=== PATIENT | female | born 1980 | race Caucasian/White ===

== ENCOUNTER → 2017-08-10 08:20 | Outpatient (CLI) | payer BC, SELFPAY ==
[2017-08-10 10:50] LABS: Hematocrit 36.1 % (37-47); Hemoglobin 11.6 g/dl (12.0-15.0); Mean Corp Hgb Conc 32.1 g/gl (32-36); Mean Corpuscular Hgb 30.8 pg (27.0-32.0); Mean Corpuscular Volume 95.8 fL (81-99); Mean Platelet Vol. 9.5 fl (6.2-12.0); Platelet Count 230 K/mm3 (150-450); RBC Distribution Width CV 14.9 % (11.6-14.6); RBC Distribution Width SD 51.5 fl (35.1-43.9); Red Blood Count 3.77 M/mm3 (4.2-5.4); White Blood Count 8.1 K/mm3 (4.4-11.0)
[2017-08-10 10:55] LABS: Glucose Challenge Gest 1H 50g 84 mg/dL (70-140)
[2017-08-10 11:09] LABS: Scan Indicated on CBC? Y/N NO
== END ==
PROVIDERS: Visit Provider Obstetrics & Gynecology
DX: Z34.83 Encounter for supervision of other normal pregnancy, third trimester (principal)
CPT/HCPCS: 82950; 85027

== ENCOUNTER → 2017-10-04 13:14 | Outpatient (CLI) | payer BC, SELFPAY ==
[2017-10-04 14:29] LABS: Group B Strep DNA By PCR POSITIVE (Negative); Probe Check PASS
== END ==
PROVIDERS: Visit Provider Obstetrics & Gynecology
DX: Z36.85 Encounter for antenatal screening for Streptococcus B (principal)
CPT/HCPCS: 87653

== ENCOUNTER 2017-10-27 04:59 | Inpatient (IN) | payer BC, SELFPAY ==
[2017-10-27] MEDS: Lactated Ringers 1,000 ML 50 ML IV ×2 (06:00→08:40)
[2017-10-27 06:36] LABS: Hematocrit 37.8 % (37-47); Hemoglobin 12.5 g/dl (12.0-15.0); Mean Corp Hgb Conc 33.1 g/gl (32-36); Mean Corpuscular Hgb 30.9 pg (27.0-32.0); Mean Corpuscular Volume 93.6 fL (81-99); Mean Platelet Vol. 10.2 fl (6.2-12.0); Platelet Count 245 K/mm3 (150-450); RBC Distribution Width CV 14.6 % (11.6-14.6); RBC Distribution Width SD 48.2 fl (35.1-43.9); Red Blood Count 4.04 M/mm3 (4.2-5.4); White Blood Count 8.7 K/mm3 (4.4-11.0)
[2017-10-27 06:39] LABS: Scan Indicated on CBC? Y/N NO
[2017-10-27 06:44] VITALS: BMI 47.4
[2017-10-27] MEDS: fentaNYL-bupivacaine (epidural) 100 ML BAG EPIDURAL (08:15)
[2017-10-27] MEDS: Oxytocin 30 units/NS 500 ml 30 UNITS/500 ML IV.SOLN 334 UNITS IV (10:48)
--- NOTE | 2017-10-27 10:54 | PCM.DCVAG ---
Discharge Diet: No Restrictions Discharge Activity: May Shower, May Take a Tub Bath May resume sexual activity in: 4-6 weeks Additional Activity Instructions:: Nothing in the vagina for 4-6 weeks. You may return to work/school in 6 weeks. Additional Instructions: If you experience any of the following, contact your healthcare provider. Bleeding that soaks a pad every hour for 2 hours Fever 100.4 or higher Unrelieved abdominal pain Problems urinating (including inability to urinate or burning while urinating). Visual changes Severe headache Flu-like symptoms Pain or redness in one of both of your breasts Pain, warmth, tenderness or swelling in your legs, especially the calf area Frequent nausea and vomiting Symptoms of depression or anxiety If you experience any of the following, call 911 or go to the nearest Emergency Room. Chest pain Problems breathing Seizure activity Partial or complete paralysis of a body part, slurred speech, weakness or drooping of the face, or a sudden inability to walk or hold your balance Allergies/Adverse Reactions: Allergies No Known Allergies Allergy (Verified 10/27/17 06:43) Medications to take at Discharge Vits [Prenatabs FA] 1 tablet PO DAILY 02/18/15 Please Follow Up With: Malu De León MD - [phone] When: Call to make an appointment with your doctor in 6 weeks. Primary Care Physician: Di Song MD [Primary Care Provider] - Proposed Discharge Date: 10/29/17
--- NOTE | 2017-10-27 10:55 | DCINST_ITS ---
Discharge Diet: No Restrictions Discharge Activity: May Shower, May Take a Tub Bath May resume sexual activity in: 4-6 weeks Additional Activity Instructions:: Nothing in the vagina for 4-6 weeks. You may return to work/school in 6 weeks. Additional Instructions: If you experience any of the following, contact your healthcare provider. * Bleeding that soaks a pad every hour for 2 hours * Fever 100.4 or higher * Unrelieved abdominal pain * Problems urinating (including inability to urinate or burning while urinating) . * Visual changes * Severe headache * Flu-like symptoms * Pain or redness in one of both of your breasts * Pain, warmth, tenderness or swelling in your legs, especially the calf area * Frequent nausea and vomiting * Symptoms of depression or anxiety If you experience any of the following, call 911 or go to the nearest Emergency Room. * Chest pain * Problems breathing * Seizure activity * Partial or complete paralysis of a body part, slurred speech, weakness or drooping of the face, or a sudden inability to walk or hold your balance Allergies/Adverse Reactions: Allergies No Known Allergies Allergy (Verified 10/27/17 06:43) Medications to take at Discharge Vits [Prenatabs FA] 1 tablet PO DAILY 02/18/15 Please Follow Up With: Malu De León MD - [phone] When: Call to make an appointment with your doctor in 6 weeks. Primary Care Physician: Di Song MD [Primary Care Provider] - Proposed Discharge Date: 10/29/17
--- NOTE | 2017-10-27 10:55 | PCM.OB.VAG ---
Vaginal Delivery Maternal Presentation: Active Labor Amniotic Membrane Rupture Type: Artificial Amniotic Fluid Description: Clear Final AMBER: 11/02/17 Gestational age: 39 Weeks and 1 Days Date of Procedure: 10/27/17 Pre-Operative Diagnosis: 39 wk labor. LGA, poly Post-Operative Diagnosis: same Surgery/ Procedure Performed: Spontaneous Vaginal Delivery Type of Anesthesia: Epidural Description of Procedure: of a lopez male over intact perineum. Head delivered OA. No nuchal cord. Mild shoulder dystocia relieved by S/P pressure, Shireen's maneuver. Gentle lateral traction, and maternal expulsive effort. Infant with spont, vigorous cry to maternal abdomen. Delayed cord clamping x two. Cord then cut. Routine cord blood collected for blood typing. PP exam: 2nd deg posterior vaginal to perineal laceration repaired to hemostatic, intact with 3-0 vicryl EBL 300 cc Placenta delivered by spont expulsion, expression. 3 V normal apperaifng with thick cord. Intact with trailing membranes Pt and infant tolerated delivery well. To recovery , stable condition [employer] counts correct x two. Presentation: Vertex Placental Delivery Description: Spontaneous, Expressed Placenta Disposition: [facility] Cord Vessel Description: 3 Vessels Cord Entanglement: None Drain: Adame to straight drain Estimated Blood Loss: 300 Infant A gender: Male (1 minute): 9 (5 minute): 9 Episiotomy Description: None Laceration: Perineal Extension/lac, Vaginal Extension/lac, 2nd degree - repaired to hemostatic intact with 3-0 vicryl Medications given after delivery: IV Pitocin Complications: None
[2017-10-27] MEDS: Oxytocin 30 units/NS 500 ml 30 UNITS/500 ML IV.SOLN 167 UNITS IV (11:18)
--- NOTE | 2017-10-27 15:21 | NURSING ---
Patient encouraged to void at this time based on fundal assessment.
--- NOTE | 2017-10-27 15:22 | NURSING ---
Report given to Evie Bustamante RN. She will assume care of patient at this time.
[2017-10-27] MEDS: Naproxen 250 MG Tablet PO (17:45)
[2017-10-27 17:59] VITALS: BP 145/72; PULSE 70; RESP 18; TEMP 36.6; O2SAT 98
[2017-10-27 20:11] VITALS: BP 130/81; PULSE 75; RESP 16; TEMP 36.9; O2SAT 98
[2017-10-28] VITALS: BP 126/72; PULSE 69; RESP 18; TEMP 36.8
[2017-10-28 04:48] VITALS: BP 123/70; PULSE 72; RESP 16; TEMP 36.8; O2SAT 97
--- NOTE | 2017-10-28 07:12 | PCM.PN.OB ---
Subjective: PPD#1 LGA Doing well. Pain control adequate. - Physical Exam General: Alert, Oriented x3, Cooperative, No apparent distress HEENT: Atraumatic Neck: Supple Abdomen: Soft - Fundus firm NT, inferior to umbilicus Neurological: Cranial nerves II-XII grossly intact Psych/Mental Status: Normal Affect Vital Signs Temp Pulse Resp BP Pulse Ox 98.2 F 72 16 123/70 H 97 10/28/17 04:48 10/28/17 04:48 10/28/17 04:48 10/28/17 04:48 10/28/17 04:48 Oxygen Delivery Method Room Air Weight: 158.7 kg Body Mass Index (BMI) 47.4 Intake and Output for Last 24 Hours 10/26/17 10/27/17 10/28/17 23:59 23:59 23:59 Intake Total 2514 / 2514 Output Total 1150 / 1150 Balance 1364 / 1364 Laboratory Tests Past 24 Hrs 10/27/17 06:00 Blood Type O POSITIVE Antibody Screen NEGATIVE Medical Necessity - Tobacco Use Smoking Status: Never smoker Assessment/Plan PPD#1 Stable pp. Continue care.
[2017-10-28 08:39] VITALS: BP 132/78; PULSE 74; RESP 16; TEMP 36.8; O2SAT 98
[2017-10-28 14:00] VITALS: BP 132/79; PULSE 83; RESP 18; TEMP 36.4; O2SAT 98
== END 2017-10-28 17:00 | disposition home or self-care (01) | DRG 774 ==
PROVIDERS: Admitting Provider Obstetrics & Gynecology; Visit Provider Obstetrics & Gynecology
DX: O36.63X0 Maternal care for excessive fetal growth, third trimester, not applicable or unspecified (principal); O70.1 Second degree perineal laceration during delivery; O98.82 Other maternal infectious and parasitic diseases complicating childbirth; O66.0 Obstructed labor due to shoulder dystocia; B95.1 Streptococcus, group B, as the cause of diseases classified elsewhere; Z3A.39 39 weeks gestation of pregnancy; Z37.0 Single live birth
CPT/HCPCS: 59025; 59050; 85027; 86850; 86900; 99218; J7120; G0378

== ENCOUNTER → 2020-04-19 11:57 | Outpatient (CLI) | payer BC, SELFPAY ==
[2020-04-19 15:15] LABS: Internal QC Validated? YES +Cl - CLEAR BKGD; Monotest Negative (Negative)
[2020-04-19 15:21] LABS: Erythrocyte Sedimentation Rate 8 mm/hr (0-20)
[2020-04-19 15:25] LABS: Absolute Lymphocyte Count 1.66 X10^3/uL (0.83-4.51); Absolute Neutrophil Count 1.3 X10^3/uL (2.0-7.7); Basophil# 0.02 X10^3/uL; Basophil% 0.6 % (0-1); Eosinophil# 0.08 X10^3/uL; Eosinophils% 2.4 % (0-5); Hematocrit 35.6 % (37-47); Hemoglobin 10.6 g/dL (12.0-15.0); Lymphocyte # 1.66 X10^3/ul (4.0); Lymphocyte % 50.3 % (19-41); Mean Corp Hgb Conc 29.8 g/dL (32-36); Mean Corpuscular Hgb 24.1 pg (27.0-32.0); Mean Corpuscular Volume 81.1 fL (81-99); Mean Platelet Vol. 9.3 fl (6.2-12.0); Monocyte# 0.27 X10^3/uL; Monocyte% 8.2 % (0-10); NRBC Flagged by Analyzer 0 % (0-5); Neutrophil # 1.26 X10^3/uL (2.7-7.7); Neutrophil % 38.2 % (47-70); POSITIVE MORPHOLOGY YES; Platelet Count 209 K/mm3 (150-450); RBC Distribution Width SD 47.9 fl (35.1-43.9); Red Blood Count 4.39 M/mm3 (4.2-5.4); White Blood Count 3.3 K/mm3 (4.4-11.0)
[2020-04-19 15:28] LABS: Differential Indicated SCAN CRITERIA MET
[2020-04-19 15:32] LABS: Vitamin D,25 Hydroxy 13.5 ng/mL
[2020-04-19 16:00] LABS: ALB/GLOB Ratio 1.1 RATIO (0.9-2.4); AST(SGOT) 41 U/L (15-37); Alanine Aminotransfer ALT/SGPT 45 U/L (13-56); Albumin, Serum 3.6 g/dL (3.2-5.0); Alkaline Phosphatase 90 U/L (45-117); Anion Gap 6 (5-15); BUN 10 mg/dL (7-18); BUN/Creat Ratio 13.7 RATIO (10-20); Calcium,Total 8.4 mg/dL (8.5-10.1); Chloride 108 mmol/L (98-107); Creatinine, Serum 0.73 mg/dL (0.55-1.02); EST Glomerular Filtration Rate 94 mL/min (>60); Est Glom Filt Rate - Afr Amer 113 mL/min (>60); Globulin 3.3 g/dL (2.2-4.2); Glucose 87 mg/dL (74-106); Potassium 3.6 mmol/L (3.5-5.1); Protein, Total 6.9 g/dL (6.4-8.2); Sodium Level 141 mmol/L (136-145); Thyroid Stim Hormone (TSH) 8.57 uIU/mL (0.358-3.74)
[2020-04-19 17:03] LABS: Platelet Estimate ADEQUATE (ADEQ); Reactive Lymphocyte 1+
[2020-04-19 17:04] LABS: Anisocytosis 1+; Hypochromasia 1+; Microcytosis RARE
[2020-04-22 12:01] LABS: T4 Free Direct 0.89 ng/dL (0.76-1.46)
[2020-04-22 15:33] LABS: EBV Acute VCA IgM < 36.0 U/mL (0.0-35.9)
[2020-04-23 12:08] LABS: Alternaria alternata <0.10 kU/L (Class 0); Aspergillus fumigatus <0.10 kU/L (Class 0); Bahia Grass 0.61 kU/L (Class II); Bermuda Grass 0.14 kU/L (Class 0/I); Bluegrass, Kentucky 3.15 kU/L (Class III); Cat Hair/Dander, Standard <0.10 kU/L (Class 0); Cedar, Mountain <0.10 kU/L (Class 0); Cladosporium herbarum <0.10 kU/L (Class 0); Cockroach, American <0.10 kU/L (Class 0); D farinae Mite <0.10 kU/L (Class 0); D pteronyssinus <0.10 kU/L (Class 0); Dog Epithelia <0.10 kU/L (Class 0); Elm, American White <0.10 kU/L (Class 0); Hazelnut Tree <0.10 kU/L (Class 0); Hickory, White <0.10 kU/L (Class 0); Johnson Grass 0.27 kU/L (Class 0/I); Maple/Box Elder <0.10 kU/L (Class 0); Mucor racemosus <0.10 kU/L (Class 0); Mugwort <0.10 kU/L (Class 0); Mulberry, White <0.10 kU/L (Class 0); Nettle <0.10 kU/L (Class 0); Oak, White <0.10 kU/L (Class 0); Penicillium chrysogen <0.10 kU/L (Class 0); Pigweed, Rough <0.10 kU/L (Class 0); Plantain, English <0.10 kU/L (Class 0); Ragweed, Short/Common <0.10 kU/L (Class 0); Sheep Sorrel(Dock) <0.10 kU/L (Class 0); Stemphylium herbarum <0.10 kU/L (Class 0); Sweet Gum <0.10 kU/L (Class 0); Sycamore, American <0.10 kU/L (Class 0)
[2020-04-23 13:06] LABS: ANTINUCLEAR ANTIBODIES DIRECT Negative (Negative)
== END ==
PROVIDERS: PCP Family Medicine; Referring Provider Family Medicine; Visit Provider Family Medicine
DX: L50.9 Urticaria, unspecified (principal)
CPT/HCPCS: 36415; 80053; 82306; 84439; 84443; 85025; 85652; 86003; 86038; 86140; 86308; 86664; 86665

== ENCOUNTER → 2020-06-03 11:59 | Outpatient (CLI) | payer BC, SELFPAY ==
[2020-06-03 16:13] LABS: CRP, High Sensitivity Cardiac 1.45 mg/L; Thyroid Stim Hormone (TSH) 2.95 uIU/mL (0.358-3.74)
[2020-06-03 16:19] LABS: Vitamin D,25 Hydroxy 24.3 ng/mL
[2020-06-04 11:38] LABS: CRP < 2.90 mg/L (0.0-3.0)
[2020-06-05 07:23] LABS: SARS-COV-2 TOTAL ABS Nonreactive (Nonreactive)
== END ==
PROVIDERS: PCP Family Medicine; Visit Provider Family Medicine
DX: E55.9 Vitamin D deficiency, unspecified (principal); E03.9 Hypothyroidism, unspecified; R51.9 Headache, unspecified
CPT/HCPCS: 36415; 82306; 84439; 84443; 86140; 86141; 86769

== ENCOUNTER → 2020-11-19 11:33 | Outpatient (CLI) | payer BC, SELFPAY ==
[2020-11-19 14:57] LABS: Hematocrit 35.2 % (37-47); Hemoglobin 10.4 g/dL (12.0-15.0); Mean Corp Hgb Conc 29.5 g/dL (32-36); Mean Corpuscular Hgb 23.5 pg (27.0-32.0); Mean Corpuscular Volume 79.5 fL (81-99); Mean Platelet Vol. 9.2 fl (6.2-12.0); Platelet Count 314 K/mm3 (150-450); RBC Distribution Width CV 16.5 % (11.6-14.6); RBC Distribution Width SD 46.9 fl (35.1-43.9); Red Blood Count 4.43 M/mm3 (4.2-5.4); White Blood Count 4.2 K/mm3 (4.4-11.0)
[2020-11-19 15:18] LABS: Vitamin B12 377 pg/mL (211-911); Vitamin D,25 Hydroxy 26.2 ng/mL
[2020-11-19 15:21] LABS: Estradiol 53.1 pg/mL
[2020-11-19 15:43] LABS: ALB/GLOB Ratio 1.1 RATIO (0.9-2.4); AST(SGOT) 20 U/L (15-37); Alanine Aminotransfer ALT/SGPT 25 U/L (13-56); Albumin, Serum 3.6 g/dL (3.2-5.0); Alkaline Phosphatase 67 U/L (45-117); Anion Gap 4 (5-15); BUN 13 mg/dL (7-18); BUN/Creat Ratio 16.2 RATIO (10-20); Calcium,Total 8.6 mg/dL (8.5-10.1); Chloride 107 mmol/L (98-107); EST Glomerular Filtration Rate 84 mL/min (>60); Est Glom Filt Rate - Afr Amer 101 mL/min (>60); Ferritin 5 ng/mL (8-252); Follicle Stimulating Hormone 6.2 mIU/mL; Free T3 2.7 pg/mL (2.18-3.98); Globulin 3.4 g/dL (2.2-4.2); Glucose 90 mg/dL (74-106); Iron 28 ug/dL (50-170); Luteinizing Hormone 4.6 mIU/mL; Sodium Level 139 mmol/L (136-145); T4 Free Direct 1.21 ng/dL (0.76-1.46); Thyroid Stim Hormone (TSH) 2.27 uIU/mL (0.358-3.74)
== END ==
PROVIDERS: PCP Family Medicine; Visit Provider Family Medicine
DX: E55.9 Vitamin D deficiency, unspecified (principal); E03.9 Hypothyroidism, unspecified; N93.8 Other specified abnormal uterine and vaginal bleeding; R53.83 Other fatigue
CPT/HCPCS: 36415; 80053; 82306; 82607; 82627; 82670; 82728; 83001; 83002; 83540; 84403; 84439; 84443; 84481; 85027; 82626

== ENCOUNTER 2021-06-23 12:04 | Outpatient (CLI) | payer BC, SELFPAY ==
[2021-06-23 15:14] LABS: Vitamin D,25 Hydroxy 19.1 ng/mL
[2021-06-23 15:31] LABS: T4 Free Direct 1.05 ng/dL (0.76-1.46); Thyroid Stim Hormone (TSH) 4.79 uIU/mL (0.358-3.74)
[2021-06-23 16:50] LABS: Ferritin 4 ng/mL (8-252); Iron 22 ug/dL (50-170)
[2021-06-23 17:59] LABS: Absolute Lymphocyte Count 1.58 X10^3/uL (0.83-4.51); Absolute Neutrophil Count 2.4 X10^3/uL (2.0-7.7); Basophil# 0.03 X10^3/uL; Basophil% 0.7 % (0-1); Eosinophil# 0.09 X10^3/uL; Hematocrit 34.6 % (37-47); Hemoglobin 10.2 g/dL (12.0-15.0); Lymphocyte # 1.58 X10^3/ul (0.83-4.51); Lymphocyte % 34.7 % (19-41); Mean Corp Hgb Conc 29.5 g/dL (32-36); Mean Corpuscular Hgb 23.5 pg (27.0-32.0); Mean Corpuscular Volume 79.7 fL (81-99); Mean Platelet Vol. 9.1 fl (6.2-12.0); Monocyte# 0.44 X10^3/uL; Monocyte% 9.7 % (0-10); NRBC Flagged by Analyzer 0 % (0-5); Neutrophil # 2.39 X10^3/uL (2.7-7.7); Neutrophil % 52.5 % (47-70); Platelet Count 330 K/mm3 (150-450); RBC Distribution Width SD 49.1 fl (35.1-43.9); Red Blood Count 4.34 M/mm3 (4.2-5.4); White Blood Count 4.6 K/mm3 (4.4-11.0)
== END 2021-06-23 23:59 | disposition home or self-care (01) ==
LOC: MFPLAB 12:05
PROVIDERS: PCP Family Medicine; Visit Provider Family Medicine
DX: D64.9 Anemia, unspecified (principal); E03.9 Hypothyroidism, unspecified; E55.9 Vitamin D deficiency, unspecified
CPT/HCPCS: 36415; 82306; 82728; 83540; 84439; 84443; 85025

== ENCOUNTER → 2021-11-24 | Outpatient (CLI) | payer BC, SELFPAY ==
[2021-11-24 15:05] LABS: Vitamin D,25 Hydroxy 28.9 ng/mL
[2021-11-24 15:09] LABS: T4 Free Direct 1.04 ng/dL (0.76-1.46); Thyroid Stim Hormone (TSH) 4.11 uIU/mL (0.358-3.74)
== END | disposition home or self-care (01) ==
LOC: MFPLAB 12:12
PROVIDERS: PCP Family Medicine; Visit Provider Family Medicine
DX: E03.9 Hypothyroidism, unspecified (principal); E55.9 Vitamin D deficiency, unspecified
CPT/HCPCS: 36415; 82306; 84439; 84443

== ENCOUNTER → 2022-02-17 | Outpatient (CLI) | payer BC, SELFPAY ==
[2022-02-17 16:23] LABS: Thyroid Stim Hormone (TSH) 3.82 uIU/mL (0.358-3.74)
== END | disposition home or self-care (01) ==
LOC: MFPLAB 11:28
PROVIDERS: PCP Family Medicine; Visit Provider Family Medicine
DX: E03.9 Hypothyroidism, unspecified (principal)
CPT/HCPCS: 36415; 84443

== ENCOUNTER → 2022-05-04 | Outpatient (CLI) | payer BC, SELFPAY ==
[2022-05-04 16:04] LABS: Thyroid Stim Hormone (TSH) 2.97 uIU/mL (0.358-3.74)
== END | disposition home or self-care (01) ==
LOC: MFPLAB 11:42
PROVIDERS: PCP Family Medicine; Visit Provider Family Medicine
DX: E03.9 Hypothyroidism, unspecified (principal)
CPT/HCPCS: 36415; 84439; 84443

== ENCOUNTER → 2023-02-08 | Outpatient (CLI) | payer BC, SELFPAY | END | disposition home or self-care (01) | LOC: MFPLAB 12:10 | PROVIDERS: PCP Family Medicine; Visit Provider Family Medicine | DX: Z00.00 Encounter for general adult medical examination without abnormal findings (principal) ==

== ENCOUNTER → 2023-12-06 | Outpatient (CLI) | payer BC, SELFPAY ==
[2023-12-06 15:34] LABS: Vitamin D,25 Hydroxy 22.8 ng/mL
[2023-12-06 15:45] LABS: ALB/GLOB Ratio 0.9 RATIO (0.9-2.4); AST(SGOT) 14 U/L (15-37); Alanine Aminotransfer ALT/SGPT 18 U/L (13-56); Albumin, Serum 3.4 g/dL (3.2-5.0); Alkaline Phosphatase 66 U/L (45-117); Anion Gap 6 (5-15); BUN 16 mg/dL (7-18); BUN/Creat Ratio 18.8 RATIO (10-20); Calcium,Total 8.7 mg/dL (8.5-10.1); Chloride 104 mmol/L (98-107); Cholesterol 180 mg/dL (200); Creatinine, Serum 0.85 mg/dL (0.55-1.02); EST Glomerular Filtration Rate 77 mL/min (>60); Est Glom Filt Rate - Afr Amer 93 mL/min (>60); Globulin 3.7 g/dL (2.2-4.2); Glucose 87 mg/dL (74-106); High Density Lipoprotein 44 mg/dL; Potassium 4.3 mmol/L (3.5-5.1); Protein, Total 7.1 g/dL (6.4-8.2); Sodium Level 136 mmol/L (136-145); T4 Free Direct 1.24 ng/dL (0.76-1.46); Thyroid Stim Hormone (TSH) 2.36 uIU/mL (0.358-3.74); Triglycerides 82 mg/dL; Very Low Density Lipoprotein 16 mg/dL (5-40)
== END | disposition home or self-care (01) ==
LOC: MFPLAB 11:59
PROVIDERS: PCP Family Medicine; Visit Provider Family Medicine
DX: R73.01 Impaired fasting glucose (principal); E55.9 Vitamin D deficiency, unspecified; E03.9 Hypothyroidism, unspecified
CPT/HCPCS: 36415; 80053; 80061; 82306; 84439; 84443

== ENCOUNTER → 2023-12-08 | Outpatient (CLI) | payer BC, SELFPAY ==
[2023-12-13 13:07] LABS: HPV APTIMA, High Risk Negative (Negative)
[2023-12-13 16:00] LABS: HPV Reflexed? YES, CHARGE PATIENT
== END | disposition home or self-care (01) ==
PROVIDERS: PCP Family Medicine; Referring Provider Nurse Practitioner Family; Visit Provider Nurse Practitioner Family
DX: Z12.4 Encounter for screening for malignant neoplasm of cervix (principal)
CPT/HCPCS: 87624; 88175; G0145

== ENCOUNTER → 2024-03-03 | Outpatient (CLI) | payer BC, SELFPAY ==
--- NOTE | 2024-03-03 14:37 | BI_ITS ---
MAMMOGRAPHY - BILATERAL SCREENING REASON FOR EXAM: Female, 43 years old. Routine annual screening examination. PERTINENT HISTORY: Non-contributory. TECHNIQUE: Digital bilateral breast jude (3D mammographic acquisition) in the CC and MLO projections. 2-D mediolateral oblique (MLO) and craniocaudad (CC) views of both breasts were obtained. CAD: Full Field Digital Mammography with Computer Added Detection was performed. COMPARISON: None. Baseline examination. FINDINGS: Breast Composition: The breasts are almost entirely fatty. There are no dominant masses or suspicious calcifications. No other significant abnormalities are identified. BI/SCRN MAMM (CAD)W/JUDE BILAT IMPRESSION: Negative screening mammogram. Yearly followup mammogram recommended. (A) ASSESSMENT CATEGORY: BIRADS Category 1: Negative. A letter regarding these results will be sent to the patient by the facility within 30 days. Approximately 10% of breast cancers are not detected by mammography. A normal mammogram should not delay biopsy of a clinically suspicious abnormality. [id number] Electronically Signed: Karthikeyan Gallegos MD at 10:56 EDT ,
== END | disposition home or self-care (01) ==
PROVIDERS: PCP Family Medicine; Referring Provider Nurse Practitioner Family; Visit Provider Nurse Practitioner Family
DX: Z12.31 Encounter for screening mammogram for malignant neoplasm of breast (principal)
CPT/HCPCS: 77063; 77067